=== PATIENT | male | born 1955 | race African-American/Black ===

== ENCOUNTER 2017-12-28 21:04 | Emergency (ER) | payer MEDICAID ==
[~2017-12-28] VITALS: Ht 180.3 cm; Wt 87.0 kg
[2017-12-29 01:20] LABS: BASOPHILS % 0.5 % (0.0-2.0); EOSINOPHILS % 1.3 % (0.0-5.0); HEMATOCRIT. 43.1 % (42.0-52.0); HEMOGLOBIN. 14.1 g/dL (14.0-18.0); MEAN CORPUSCULAR HEMOGLOBIN 29.5 pg (28.0-32.0); MEAN CORPUSCULAR VOLUME 90.5 fL (80.0-94.0); MEAN PLATELET VOLUME 8.2 fl (7.4-10.4); MONOCYTES % 13.2 % (2.0-8.0); PLATELET 226 x1000/uL (130-400); RED BLOOD CELL COUNT 4.76 mill/uL (4.7-6.1); RED CELL DISTRIBUTION WIDTH 13.3 % (11.6-14.6)
[2017-12-29 01:26] LABS: PROTHROMBIN TIME 10.7 sec (9.4-11.6)
[2017-12-29 01:29] LABS: CHLORIDE 105 mEq/L (98-107)
[2017-12-29 01:34] LABS: TROPONIN I < 0.02 ng/mL (0.00-0.04)
[2017-12-29 05:30] VITALS: BP 149/92
== END 2017-12-29 05:30 | disposition home or self-care (01) ==
LOC: ER 21:04 → EDBEDREQ 12-29 01:25 → ER 12-29 05:30 → CANBEDREQ 12-29 05:59
DX: R07.89 Other chest pain (principal)
CPT/HCPCS: 36415; 71045; 80053; 83880; 84484; 85025; 85610; 93005; 99285; Z7610